=== PATIENT | female | born 1990 | race Hispanic/Latino ===

== ENCOUNTER 2025-09-25 07:13 | Day surgery (SDC) | payer MEDICAID ==
[2025-09-25] VITALS (12 sets, daily range): BP systolic 88–104; BP diastolic 48–68; PULSE 52–70; RESP 15–16; TEMP 97.1–98
[~2025-09-25] VITALS: Ht 154.9 cm; Wt 56.7 kg
[2025-09-25] MEDS ORDERED: 0.9%NACL 1000ML 1,000 ML IV ONE (07:33)
[2025-09-25] MEDS ORDERED: BOTULINUM TOXIN TYPE A 100 UNITS/VIAL INJ ONE (08:30)
[2025-09-25] MEDS ORDERED: MIDAZOLAM HCL 1 MG/ML 2ML VIAL ONE (11:04)
[2025-09-25] MEDS ORDERED: LIDOCAINE PF 100MG/5ML (2%) SYRINGE 5ML ONE (11:04)
== END 2025-09-25 12:35 | disposition home or self-care (01) ==
LOC: DAH 07:13
PROVIDERS: ATTEND Surgery
DX: K92.1 Melena (principal); K60.2 Anal fissure, unspecified; F41.9 Anxiety disorder, unspecified; F32.A Depression, unspecified; Z98.891 History of uterine scar from previous surgery; Z79.899 Other long term (current) drug therapy; Z98.890 Other specified postprocedural states
CPT/HCPCS: 81025; 45335; J7030; J2003; J2250; J2704; J0585; J3490; A4620; A4215 ×2; A4223; A4222; A4221; A4663; A4606